=== PATIENT | male | born 1975 | race African-American/Black ===

== ENCOUNTER 2021-02-27 09:41 | Emergency (ER) | payer SELFPAY ==
[2021-02-27] MEDS ORDERED: Ibuprofen 200 MG TAB ONE (10:36)
[2021-02-27] MEDS ORDERED: Acetaminophen 500 MG TAB ONE (10:36)
[2021-02-27 17:06] LABS: SARS-CoV-2 PCR by NAA Not Detected (NotDetected)
== END 2021-02-27 10:43 | disposition home or self-care (01) ==
LOC: CSHERS 09:41
DX: B34.9 Viral infection, unspecified (principal); Z20.822 Contact with and (suspected) exposure to COVID-19; I10 Essential (primary) hypertension; E11.9 Type 2 diabetes mellitus without complications; Z86.73 Personal history of transient ischemic attack (TIA), and cerebral infarction without residual deficits; F17.210 Nicotine dependence, cigarettes, uncomplicated
CPT/HCPCS: 99283; U0003; U0005

== ENCOUNTER 2021-11-07 18:54 | Emergency (ER) | payer OTHER, SELFPAY ==
[2021-11-07 19:16] LABS: #Eosinphils 0.1 10x3/uL (0.0-0.5); #Monocytes 0.8 10x3/uL (0.0-1.1); #Neutrophils 4.6 10x3/uL (1.5-8.4); %Basophils 0.6 % (0.0-2.0); %Eosinophils 0.8 % (0.0-6.0); %Lymphocytes 23.1 % (18.0-47.0); %Monocytes 10.9 % (0.0-10.0); %Neutrophils 64.2 % (40.0-75.0); Hemoglobin 13.1 g/dL (13.5-17.5); Mean Corpuscular HGB CONC 33.1 g/dL (32.0-36.0); Mean Corpuscular Hemoglobin 27.6 pg (27.0-33.0); Mean Corpuscular Volume 83.5 fl (81.2-95.1); Mean Platelet Volume 10.4 fl (7.4-10.4); Platelet Count 225 10x3/uL (150-450); RBC Distribution Width 15.5 % (11.5-14.5); Red Blood Cell (RBC) Count 4.74 10x6/uL (4.32-5.72); White Blood Cell (WBC) Count 7.1 10x3/uL (3.5-10.5)
[2021-11-07] MEDS ORDERED: Acetaminophen 500 MG TAB ONE (19:27)
[2021-11-07 19:36] LABS: ALT (SGPT) 31 U/L (8-55); AST (SGOT) 24 U/L (5-34); Albumin 4.2 g/dL (3.5-5.0); Alkaline Phosphatase 61 U/L (40-110); Anion Gap 14 mmol/L (10-20); BUN (Urea Nitrogen) 21 mg/dL (8.9-20.6); Bilirubin, Total 0.2 mg/dL (0.2-1.2); Calc. Creatinine Clearance 0 mL/min (70-130); Calcium 9.6 mg/dL (7.8-10.44); Carbon Dioxide 24 mmol/L (22-29); Chloride 108 mmol/L (98-107); Estimated GFR 71; Glucose 104 mg/dL (70-105); Lipase 38 U/L (8-78); Protein, Total 7.2 g/dL (6.0-8.3); Sodium 142 mmol/L (136-145)
== END 2021-11-07 19:46 | disposition home or self-care (01) ==
LOC: CSHERS 18:54
DX: R51.9 Headache, unspecified (principal); R07.9 Chest pain, unspecified; E11.9 Type 2 diabetes mellitus without complications; I10 Essential (primary) hypertension; F17.210 Nicotine dependence, cigarettes, uncomplicated
CPT/HCPCS: 36415; 71045; 80053; 83690; 84484; 85025; 93005

== ENCOUNTER 2022-01-11 09:10 | Emergency (ER) | payer SELFPAY ==
[2022-01-11] MEDS ORDERED: Ketorolac Tromethamine 30 MG/ML VIAL ONE (10:46)
== END 2022-01-11 10:54 | disposition home or self-care (01) ==
LOC: CSHERS 09:10
DX: S93.402A Sprain of unspecified ligament of left ankle, initial encounter (principal); X50.1XXA Overexertion from prolonged static or awkward postures, initial encounter
CPT/HCPCS: 96372; J1885

== ENCOUNTER 2022-03-27 15:49 | Observation (INO) | payer SELFPAY ==
[2022-03-27 16:22] LABS: #Monocytes 0.4 10x3/uL (0.0-1.1); #Neutrophils 3.5 10x3/uL (1.5-8.4); %Basophils 0.6 % (0.0-2.0); %Eosinophils 0.6 % (0.0-6.0); %Lymphocytes 25.9 % (18.0-47.0); %Monocytes 7.8 % (0.0-10.0); %Neutrophils 64.9 % (40.0-75.0); Hemoglobin 13.1 g/dL (13.5-17.5); Mean Corpuscular HGB CONC 33.2 g/dL (32.0-36.0); Mean Corpuscular Hemoglobin 27.5 pg (27.0-33.0); Mean Corpuscular Volume 82.8 fl (81.2-95.1); Mean Platelet Volume 10.5 fl (7.4-10.4); Platelet Count 223 10x3/uL (150-450); RBC Distribution Width 15.9 % (11.5-14.5); Red Blood Cell (RBC) Count 4.77 10x6/uL (4.32-5.72); White Blood Cell (WBC) Count 5.4 10x3/uL (3.5-10.5)
[2022-03-27 16:38] LABS: ALT (SGPT) 29 U/L (8-55); AST (SGOT) 30 U/L (5-34); Albumin 4.4 g/dL (3.5-5.0); Alkaline Phosphatase 54 U/L (40-110); Anion Gap 14 mmol/L (10-20); BUN (Urea Nitrogen) 15 mg/dL (8.9-20.6); Bilirubin, Total 0.4 mg/dL (0.2-1.2); CK (CPK) 862 U/L (30-200); Calc. Creatinine Clearance 0 mL/min (70-130); Calcium 9.4 mg/dL (7.8-10.44); Carbon Dioxide 23 mmol/L (22-29); Chloride 108 mmol/L (98-107); Estimated GFR 76; Glucose 84 mg/dL (70-105); Potassium 3.8 mmol/L (3.5-5.1); Protein, Total 7.4 g/dL (6.0-8.3); Sodium 141 mmol/L (136-145)
[2022-03-27] MEDS ORDERED: diphenhydrAMINE 50 MG/ML VIAL ONE (17:01)
[2022-03-27] MEDS ORDERED: Metoclopramide HCl 10 MG/2 ML VIAL ONE (17:01)
[2022-03-27] MEDS ORDERED: Aspirin Chewable 81 MG TAB ONE (18:09)
[2022-03-27 20:46] LABS: Troponin I 0.018 ng/mL (< 0.028)
[2022-03-27] MEDS ORDERED: Guaifenesin DM 100-10/5 ML UDCUP PO PRN (21:14)
[2022-03-27] MEDS ORDERED: Dextrose 5% in Water 1,000 ML IV PRN (21:14)
[2022-03-27] MEDS ORDERED: Senokot S 8.6-50 MG TAB PO PRN (21:14)
[2022-03-27] MEDS ORDERED: Calcium Carbonate 500 MG ChewTAB PO PRN (21:14)
[2022-03-27] MEDS ORDERED: Ondansetron PF 4 MG/2 ML Vial IVP PRN (21:14)
[2022-03-27] MEDS ORDERED: Dextrose 50% Abboject 50 ML SYRINGE SLOW IVP PRN (21:14)
[2022-03-27] MEDS ORDERED: Lactated Ringer's 500 ML IV SCH (21:30)
[2022-03-27] MEDS ORDERED: Metoclopramide HCl 10 MG/2 ML VIAL IVP SCH (21:30)
[2022-03-27] MEDS ORDERED: Ketorolac Tromethamine 30 MG/ML VIAL IVP SCH (21:30)
[2022-03-27] MEDS ORDERED: diphenhydrAMINE 50 MG/ML VIAL IVP SCH (21:30)
[2022-03-27] MEDS ORDERED: Ketorolac Tromethamine 30 MG/ML VIAL ONE (22:14)
[2022-03-27 23:10] LABS: Troponin I 0.031 ng/mL (< 0.028)
[2022-03-28 05:29] LABS: Anion Gap 14 mmol/L (10-20); BUN (Urea Nitrogen) 17 mg/dL (8.9-20.6); CK (CPK) 538 U/L (30-200); Calc. Creatinine Clearance 0 mL/min (70-130); Calcium 8.7 mg/dL (7.8-10.44); Carbon Dioxide 21 mmol/L (22-29); Chloride 109 mmol/L (98-107); Estimated GFR 88; Glucose 100 mg/dL (70-105); Sodium 140 mmol/L (136-145)
[2022-03-28] MEDS ORDERED: metFORMIN 500 MG TAB ONE (08:13)
[2022-03-28] MEDS: metFORMIN 500 MG TAB PO SCH ×2 (08:22→18:21)
[2022-03-28] MEDS ORDERED: Aspirin Chewable 81 MG TAB ONE (09:32)
[2022-03-28] MEDS ORDERED: Amlodipine 5 MG TAB ONE (09:33)
[2022-03-28] MEDS: Lisinopril 20 MG TAB PO SCH (09:38)
[2022-03-28] MEDS: Aspirin 81 mg Enteric Coated Tablet PO SCH (09:38)
[2022-03-28] MEDS: Amlodipine 10 MG TAB PO SCH (09:38)
[2022-03-28 11:17] LABS: Bilirubin Neg (Negative); Blood, Urine Negative (Negative); Clarity Clear (Clear); Glucose, Urine (Dipstick) Normal (Negative); Ketone, Urine Negative (Negative); Leukocyte Negative (Negative); Nitrite Negative (Negative); Protein, Urine (Dipstick) Negative (Neg-Trace); Specific Gravity, Urine 1.015 (1.005-1.030); Urobilinogen Normal mg/dL (Less than 2)
[2022-03-28 11:24] LABS: Amphetamine Not Detected (NotDetected); Barbiturates Screen Not Detected (NotDetected); Benzodiazepine Screen Not Detected (NotDetected); Cocaine Metabolite Screen Not Detected (NotDetected); Methadone Not Detected (NotDetected); Methamphetamine Not Detected (NotDetected); Opiate Screen Not Detected (NotDetected); Oxycodone Screen Not Detected (NotDetected); Phencyclidine (PCP) Not Detected (NotDetected); THC/Cannabinoid Screen Detected (NotDetected); Tricyclic Screen Not Detected (NotDetected)
[2022-03-28 11:28] LABS: Bacteria/HPF None Seen HPF (None Seen); RBC/HPF 0-3 HPF (0-3); Squamous Epithelial 0-3 HPF (0-3); WBC/HPF 0-3 HPF (0-3)
[2022-03-28] MEDS ORDERED: hydrALAZINE 20 MG/ML VIAL SLOW IVP PRN (11:33)
[2022-03-28] MEDS ORDERED: Nicotine 14 MG PATCH TD PRN (11:36)
[2022-03-28] MEDS ORDERED: Nitroglycerin 0.4 MG TAB (25 Tab Bottle) SL PRN (11:38)
[2022-03-28 13:16] LABS: Hemoglobin A1c 6.7 % (4.0-6.0)
[2022-03-28 13:39] VITALS: BMI 39.3
[2022-03-28] MEDS ORDERED: Ketorolac Tromethamine 30 MG/ML VIAL IVP SCH (15:00)
[2022-03-28] MEDS: Sodium Chloride 0.9% 1,000 ML IV SCH (18:21)
[2022-03-28] MEDS: Atorvastatin Calcium 40 MG TAB PO SCH (20:28)
[2022-03-28] MEDS: Acetaminophen 325 MG TAB PO PRN (20:53)
[2022-03-29 04:40] LABS: #Eosinphils 0.1 10x3/uL (0.0-0.5); #Monocytes 0.5 10x3/uL (0.0-1.1); #Neutrophils 3.6 10x3/uL (1.5-8.4); %Basophils 0.7 % (0.0-2.0); %Monocytes 8.6 % (0.0-10.0); %Neutrophils 63.4 % (40.0-75.0); Hemoglobin 13.4 g/dL (13.5-17.5); Mean Corpuscular HGB CONC 33.1 g/dL (32.0-36.0); Mean Corpuscular Hemoglobin 27.7 pg (27.0-33.0); Mean Corpuscular Volume 83.9 fl (81.2-95.1); Mean Platelet Volume 11.1 fl (7.4-10.4); Platelet Count 237 10x3/uL (150-450); RBC Distribution Width 15.9 % (11.5-14.5); Red Blood Cell (RBC) Count 4.83 10x6/uL (4.32-5.72); White Blood Cell (WBC) Count 5.7 10x3/uL (3.5-10.5)
[2022-03-29 04:54] LABS: Anion Gap 14 mmol/L (10-20); BUN (Urea Nitrogen) 17 mg/dL (8.9-20.6); Calc. Creatinine Clearance 167 mL/min (70-130); Calcium 9.1 mg/dL (7.8-10.44); Carbon Dioxide 20 mmol/L (22-29); Chloride 108 mmol/L (98-107); Estimated GFR 93; Glucose 129 mg/dL (70-105); Potassium 4.4 mmol/L (3.5-5.1); Sodium 138 mmol/L (136-145)
[2022-03-29] MEDS: Sodium Chloride 0.9% 1,000 ML IV SCH (05:29)
[2022-03-29] MEDS: Acetaminophen 325 MG TAB PO PRN ×2 (05:29→10:26)
[2022-03-29] MEDS: Aspirin 81 mg Enteric Coated Tablet PO SCH (08:31)
[2022-03-29] MEDS: Chlorthalidone 25 MG TAB PO SCH (08:32)
[2022-03-29] MEDS: Amlodipine 10 MG TAB PO SCH (08:32)
[2022-03-29] MEDS: Lisinopril 20 MG TAB PO SCH (08:32)
[2022-03-29] MEDS: metFORMIN 500 MG TAB PO SCH ×2 (08:33→17:26)
[2022-03-29] MEDS: HYDROcodone/Acetaminophen 5/325 mg Tablet PO PRN ×2 (14:34→18:38)
[2022-03-29] MEDS ORDERED: traMADol HCl 50 MG TAB PO PRN (16:39)
[2022-03-29] MEDS ORDERED: hydrALAZINE 25 MG TAB PO SCH (21:00)
[2022-03-29] MEDS: Atorvastatin Calcium 40 MG TAB PO SCH (21:29)
[2022-03-30 04:47] LABS: #Eosinphils 0.1 10x3/uL (0.0-0.5); #Monocytes 0.5 10x3/uL (0.0-1.1); #Neutrophils 3.6 10x3/uL (1.5-8.4); %Basophils 0.5 % (0.0-2.0); %Eosinophils 1.4 % (0.0-6.0); %Lymphocytes 27.1 % (18.0-47.0); %Monocytes 9.3 % (0.0-10.0); %Neutrophils 61.5 % (40.0-75.0); Mean Corpuscular Hemoglobin 27.3 pg (27.0-33.0); Mean Corpuscular Volume 82.8 fl (81.2-95.1); Mean Platelet Volume 11.3 fl (7.4-10.4); Platelet Count 228 10x3/uL (150-450); RBC Distribution Width 15.9 % (11.5-14.5); Red Blood Cell (RBC) Count 5.12 10x6/uL (4.32-5.72); White Blood Cell (WBC) Count 5.8 10x3/uL (3.5-10.5)
[2022-03-30 05:09] LABS: ALT (SGPT) 21 U/L (8-55); AST (SGOT) 19 U/L (5-34); Alkaline Phosphatase 52 U/L (40-110); Anion Gap 15 mmol/L (10-20); BUN (Urea Nitrogen) 17 mg/dL (8.9-20.6); Bilirubin, Total 0.3 mg/dL (0.2-1.2); Calc. Creatinine Clearance 153 mL/min (70-130); Calcium 9.7 mg/dL (7.8-10.44); Carbon Dioxide 22 mmol/L (22-29); Chloride 104 mmol/L (98-107); Estimated GFR 84; Globulin 3.3 g/dL (2.4-3.5); Glucose 100 mg/dL (70-105); Potassium 3.8 mmol/L (3.5-5.1); Protein, Total 7.3 g/dL (6.0-8.3); Sodium 137 mmol/L (136-145)
[2022-03-30] MEDS ORDERED: hydrALAZINE 25 MG TAB PO SCH (09:00)
[2022-03-30] MEDS: Chlorthalidone 25 MG TAB PO SCH (09:04)
[2022-03-30] MEDS: metFORMIN 500 MG TAB PO SCH (09:05)
[2022-03-30] MEDS: Lisinopril 20 MG TAB PO SCH (09:05)
[2022-03-30] MEDS: Aspirin 81 mg Enteric Coated Tablet PO SCH (09:05)
[2022-03-30] MEDS: Amlodipine 10 MG TAB PO SCH (09:05)
[2022-03-30] MEDS: HYDROcodone/Acetaminophen 5/325 mg Tablet PO PRN (09:07)
[2022-03-30 11:44] VITALS: BP 130/71; TEMP 98.6
== END 2022-03-30 14:35 | disposition home or self-care (01) ==
LOC: CSHERS 15:49 → CSHERHOLD 23:54 → INTOOBSV 23:54 → CSHTELE 03-28 09:43
PROVIDERS: ADMIT Student in an Organized Health Care Education/Training Program; ATTEND Internal Medicine
DX: R07.9 Chest pain, unspecified (principal); R51.9 Headache, unspecified; E78.5 Hyperlipidemia, unspecified; R20.0 Anesthesia of skin; R20.2 Paresthesia of skin; I16.0 Hypertensive urgency; I12.9 Hypertensive chronic kidney disease with stage 1 through stage 4 chronic kidney disease, or unspecified chronic kidney disease; E11.22 Type 2 diabetes mellitus with diabetic chronic kidney disease; F12.90 Cannabis use, unspecified, uncomplicated; N18.2 Chronic kidney disease, stage 2 (mild); E66.01 Morbid (severe) obesity due to excess calories; Z79.84 Long term (current) use of oral hypoglycemic drugs; Z79.82 Long term (current) use of aspirin; Z79.899 Other long term (current) drug therapy; F17.210 Nicotine dependence, cigarettes, uncomplicated; Z91.14 Patient's other noncompliance with medication regimen; Z68.39 Body mass index [BMI] 39.0-39.9, adult
CPT/HCPCS: 36415; 70450; 70551; 80048; 80053; 80306; 81001; 82550; 83036; 84484; 85025; 93005; 93306; 96372; 96374; 96375; G0378; J0360; J1200; J1650; J1885; J2405; J2765; J7050; J7120

== ENCOUNTER 2022-04-23 09:55 | Emergency (ER) | payer SELFPAY | END 2022-04-23 11:00 | disposition home or self-care (01) | LOC: CSHERS 09:55 | DX: B34.9 Viral infection, unspecified (principal); Z20.822 Contact with and (suspected) exposure to COVID-19; I10 Essential (primary) hypertension; E11.9 Type 2 diabetes mellitus without complications; F17.210 Nicotine dependence, cigarettes, uncomplicated; Z79.899 Other long term (current) drug therapy; Z79.82 Long term (current) use of aspirin; Z79.84 Long term (current) use of oral hypoglycemic drugs | CPT/HCPCS: 87804; 99283; U0003; U0005 ==